=== PATIENT | female | born 1970 | race Hispanic/Latino ===

== ENCOUNTER 2022-04-24 13:08 | Outpatient (CLI) | payer BC ==
[2022-04-24 15:00] LABS: Hemoglobin 14.5 g/dL (12.0-15.5); Mean Corpuscular HGB CONC 34.3 g/dL (32.0-36.0); Mean Corpuscular Hemoglobin 32.7 pg (27.0-33.0); Mean Corpuscular Volume 95.3 fl (81.6-98.3); Mean Platelet Volume 10.4 fl (7.4-10.4); Platelet Count 255 10x3/uL (150-450); RBC Distribution Width 11.8 % (11.5-14.5); Red Blood Cell (RBC) Count 4.44 10x6/uL (3.90-5.03); White Blood Cell (WBC) Count 5.6 10x3/uL (3.5-10.5)
[2022-04-24 15:08] LABS: INR-International Normal Ratio 0.9; PTT 26.2 sec (22.0-33.0); Prothrombin Time 9.9 sec (9.5-12.1)
[2022-04-24 15:12] LABS: Anion Gap 16 mmol/L (10-20); BUN (Urea Nitrogen) 15 mg/dL (7.0-18.7); Calc. Creatinine Clearance 0 mL/min (70-130); Calcium 10.1 mg/dL (7.8-10.44); Carbon Dioxide 24 mmol/L (22-29); Chloride 104 mmol/L (98-107); Estimated GFR 88; Glucose 84 mg/dL (70-105); Potassium 4.4 mmol/L (3.5-5.1); Sodium 140 mmol/L (136-145)
== END 2022-04-24 13:09 | disposition home or self-care (01) ==
LOC: LABBT 13:08
PROVIDERS: ATTEND Surgery
DX: Z01.818 Encounter for other preprocedural examination (principal); M51.16 Intervertebral disc disorders with radiculopathy, lumbar region; M48.061 Spinal stenosis, lumbar region without neurogenic claudication; Z98.890 Other specified postprocedural states
CPT/HCPCS: 80048; 85027; 85610; 85730; 93005; 93010

== ENCOUNTER 2022-04-28 07:12 | Observation (INO) | payer BC ==
[2022-04-24 14:09] VITALS: BMI 28.5
[2022-04-28] MEDS ORDERED: Levofloxacin 500 mg/D5W 100 ml Premix Bag ONE (08:06)
[2022-04-28 08:56] LABS: SARS-CoV-2 NAA Rapid Test Not Detected (NotDetected)
[2022-04-28] MEDS ORDERED: Vancomycin 1 GM VIAL ONE (08:56)
[2022-04-28] MEDS ORDERED: Thrombin 5000 UNITS/5 ML VIAL ONE (08:56)
[2022-04-28] MEDS ORDERED: fentaNYL PF 100 MCG/2 ML SYRINGE ONE ×3 (08:57→11:19)
[2022-04-28] MEDS ORDERED: Clindamycin/D5W 900 mg/50 ml Premix Bag ONE (09:02)
[2022-04-28] MEDS ORDERED: Midazolam HCl 2 mg/2 ml Vial ONE (09:02)
[2022-04-28] MEDS ORDERED: PROPOFOL 200 MG/20 ML VIAL ONE (09:13)
[2022-04-28] MEDS ORDERED: Lidocaine 1% PF 5 ML VIAL ONE (09:13)
[2022-04-28] MEDS ORDERED: Ondansetron PF 4 MG/2 ML Vial ONE (09:13)
[2022-04-28] MEDS ORDERED: Rocuronium Bromide 10 MG/ML (10ML VIAL) ONE (09:13)
[2022-04-28] MEDS ORDERED: Ketorolac Tromethamine 30 MG/ML VIAL ONE (09:13)
[2022-04-28] MEDS ORDERED: NEOSTIGMINE 3 MG/3 ML SYR 3 MG/3 ML SYRINGE ONE (09:13)
[2022-04-28] MEDS ORDERED: ePHEDrine 50 MG/ML VIAL ONE (09:13)
[2022-04-28] MEDS ORDERED: Glycopyrrolate 0.2 MG/ML 5 ML SYRINGE ONE (09:13)
[2022-04-28] MEDS ORDERED: PHENYLEPHRINE-NS 100 MCG/ML 10 ML SYRINGE ONE (09:13)
[2022-04-28] MEDS ORDERED: Dexamethasone 20 MG/5 ML VIAL ONE (09:13)
[2022-04-28] MEDS ORDERED: Ondansetron PF 4 MG/2 ML Vial IVP PRN ×2 (10:51→11:45)
[2022-04-28] MEDS ORDERED: diphenhydrAMINE 25 MG CAP PO PRN ×2 (10:51→11:45)
[2022-04-28] MEDS ORDERED: traMADol HCl 50 MG TAB PO PRN (10:51)
[2022-04-28] MEDS ORDERED: HYDROcodone/Acetaminophen 7.5/325 mg Tablet PO PRN (10:51)
[2022-04-28] MEDS ORDERED: Acetaminophen/Codeine 30-300mg Tablet PO PRN (10:51)
[2022-04-28] MEDS ORDERED: Morphine 2 MG/ML VIAL SLOW IVP PRN (10:51)
[2022-04-28] MEDS ORDERED: hydrALAZINE 20 MG/ML VIAL SLOW IVP PRN (10:56)
[2022-04-28] MEDS ORDERED: tiZANidine HCl 4 MG TAB PO PRN (10:56)
[2022-04-28] MEDS ORDERED: Promethazine HCl 25 MG/ML VIAL IM PRN ×2 (10:59→11:45)
[2022-04-28] MEDS ORDERED: Ondansetron HCl/PF 4 MG/2 ML Vial IVP PRN (10:59)
[2022-04-28] MEDS: Sodium Chloride 0.9% 1,000 ML IV SCH (11:15)
[2022-04-28] MEDS ORDERED: HYDROmorphone 0.5 MG/0.5 ML SYRINGE ONE (11:29)
[2022-04-28] MEDS ORDERED: HYDROmorphone 2 MG/ML VIAL ONE (11:39)
[2022-04-28] MEDS ORDERED: Zolpidem Tartrate 5 MG TAB PO PRN (11:45)
[2022-04-28] MEDS ORDERED: HYDROmorphone 10 mg/100 ml CADD IVPB PRN (11:45)
[2022-04-28] MEDS ORDERED: diphenhydrAMINE 50 MG/ML VIAL IVP PRN (11:45)
[2022-04-28] MEDS ORDERED: Naloxone HCl 0.4 mg/ml Vial IV PRN (11:45)
[2022-04-28] MEDS ORDERED: PCA Communication Order-Pharmacy FS SCH (11:45)
[2022-04-28] MEDS ORDERED: diphenhydrAMINE 50 MG/ML VIAL IM PRN (11:45)
[2022-04-28] MEDS: Clindamycin/D5W 900 MG in Premix Bag 1 BAG IVPB SCH (17:51)
[2022-04-29] MEDS: Acetaminophen 325 MG TAB PO PRN ×2 (01:09→05:50)
[2022-04-29] MEDS: Clindamycin/D5W 900 MG in Premix Bag 1 BAG IVPB SCH (01:09)
[2022-04-29] MEDS: Sodium Chloride 0.9% 1,000 ML IV SCH ×2 (01:11→14:22)
[2022-04-29] MEDS ORDERED: oxyCODONE 5 MG TAB PO PRN ×2 (07:32)
[2022-04-29] MEDS ORDERED: Morphine 2 MG/ML VIAL SLOW IVP PRN (07:33)
[2022-04-29] MEDS ORDERED: CRANBERRY 400 MG PO SCH (09:00)
[2022-04-29] MEDS ORDERED: CALCIUM GLYCEROPHOSPHATE 65 MG PO SCH (09:00)
[2022-04-29] MEDS ORDERED: FLU VACC QS2022-23(6MOS UP)/PF 60 MCG/0.5 ML SYRINGE IM ONE (09:00)
[2022-04-29] MEDS: Ketorolac Tromethamine 30 MG/ML VIAL IVP SCH ×2 (10:11→14:30)
[2022-04-29 16:19] VITALS: BP 92/58; TEMP 98.2
== END 2022-04-29 18:26 | disposition home or self-care (01) ==
LOC: SDC 07:12 → SJJU 16:39
PROVIDERS: ADMIT Surgery; ATTEND Surgery
PROC: 01NB0ZZ Release Lumbar Nerve, Open Approach (ICD-10-PCS; principal; 2022-04-28)
PROC: 0SB40ZZ Excision of Lumbosacral Disc, Open Approach (ICD-10-PCS; 2022-04-28)
DX: M48.062 Spinal stenosis, lumbar region with neurogenic claudication (principal); M51.16 Intervertebral disc disorders with radiculopathy, lumbar region; M48.07 Spinal stenosis, lumbosacral region; Z88.0 Allergy status to penicillin; Z20.822 Contact with and (suspected) exposure to COVID-19
CPT/HCPCS: 96374; 96375; 96376; G0378; J1100; J1170; J1885; J1956; J2250; J2405; J2704; J3370; J3490; J7050; U0002